=== PATIENT | female | born 1995 | race Caucasian/White ===

== ENCOUNTER 2019-09-12 22:23 | Emergency (ER) | payer BC, OTHER ==
[2019-09-12] MEDS ORDERED: Acetaminophen 325 MG Tab PO ONE (23:21)
[2019-09-12] MEDS ORDERED: Albuterol/Ipratropium 3.0-0.5 MG/3 ML Neb Soln NEB ONE (23:25)
[2019-09-12] MEDS ORDERED: Benzonatate 100 MG Cap PO ONE (23:38)
[2019-09-12] MEDS ORDERED: predniSONE 20 MG Tab PO ONE (23:38)
--- NOTE | 2019-09-12 23:40 | EDM.PDOC ---
ED HPI GENERAL MEDICAL PROBLEM - General Chief Complaint: General Stated Complaint: SICK, ASTHEMA, TOUGH TIME BREATHING Time Seen by Provider: 09/12/19 22:45 Source of Information: Reports: Patient History Limitations: Reports: No Limitations - History of Present Illness INITIAL COMMENTS - FREE TEXT/NARRATIVE: ED with c/o cough, asthma, fever chills, body aches since at early Thursday. no flu vaccine this year. hx asthma, uses only inhaler as needed. No ear pain, No nausea or vomiting. Throat scratchy. Headache Pain Score (Numeric/FACES): 6 - Related Data Allergies Allergy/AdvReac Type Severity Reaction Status Date / Time No Known Allergies Allergy Verified 09/12/19 22:42 Home Meds: Home Meds Albuterol Sulfate [Albuterol Sulfate Hfa] 8.5 gm IH Q4HR 09/12/19 [History] Past Medical History HEENT History: Reports: Impaired Vision Cardiovascular History: Reports: Other (See Below) Other Cardiovascular History: reports occasional heart palpitations Respiratory History: Reports: Asthma - Infectious Disease History Infectious Disease History: Reports: Chicken Pox, MRSA Social & Family History - Family History Family Medical History: Noncontributory - Tobacco Use Smoking Status *Q: Never Smoker Second Hand Smoke Exposure: No - Caffeine Use Caffeine Use: Reports: Coffee - Recreational Drug Use Recreational Drug Use: No ED ROS GENERAL - Review of Systems Review Of Systems: Comprehensive ROS is negative, except as noted in HPI. ED EXAM, GENERAL - Physical Exam Exam: See Below Exam Limited By: No Limitations General Appearance: Alert, Mild Distress Eye Exam: Bilateral Eye: EOMI Ears: Normal External Exam, Normal TMs Nose: Normal Inspection Throat/Mouth: Normal Inspection Head: Atraumatic, Normocephalic Neck: Normal Inspection Respiratory/Chest: No Respiratory Distress, Lungs Clear, Normal Breath Sounds. No: Crackles, Rales, Rhonchi, Wheezing Cardiovascular: Normal Peripheral Pulses, Regular Rate, Rhythm GI/Abdominal: Normal Bowel Sounds Back Exam: Normal Inspection Extremities: Normal Inspection Neurological: Alert, Oriented, Normal Cognition Psychiatric: Anxious Skin Exam: Warm, Dry, Intact, Normal Color Course - Vital Signs Last Recorded V/S: Last Vital Signs Temp 101.3 F H 09/12/19 22:35 Pulse 110 H 09/12/19 22:35 Resp 20 09/12/19 22:35 BP 152/83 H 09/12/19 22:35 Pulse Ox 95 09/12/19 22:35 - Orders/Labs/Meds Orders: Active Orders 24 hr Category Date Time Status RT Aerosol Therapy [RC] ASDIRECTED Care 09/12/19 23:25 Active CULTURE STREP A CONFIRMATION [] Stat Lab 09/12/19 22:50 Results STREP SCRN A RAPID W CULT CONF [] Stat Lab 09/12/19 22:50 Results Meds: Medications Discontinued Medications Generic Name Dose Route Start Last Admin Trade Name Pavithra PRN Reason Stop Dose Admin Acetaminophen 650 mg 09/12/19 23:21 09/12/19 23:28 Tylenol PO 09/12/19 23:22 650 mg NOW ONE Administration Albuterol/Ipratropium 3 ml 09/12/19 23:25 09/12/19 23:29 Duoneb 3.0-0.5 Mg/3 Ml NEB 09/12/19 23:26 3 ml ONETIME ONE Administration Benzonatate 200 mg 09/12/19 23:38 09/12/19 23:49 Tessalon Perles PO 09/12/19 23:39 200 mg ONETIME ONE Administration Benzonatate Confirm 09/12/19 23:52 Tessalon Perles Administered 09/12/19 23:53 Dose 100 mg .ROUTE .STK-MED ONE Prednisone 40 mg 09/12/19 23:38 09/12/19 23:49 Prednisone PO 09/12/19 23:39 40 mg ONETIME ONE Administration Departure - Departure Time of Disposition: 23:40 Disposition: Home, Self-Care 01 Condition: Good Clinical Impression: Influenza - Discharge Information *PRESCRIPTION DRUG MONITORING PROGRAM REVIEWED*: No *COPY OF PRESCRIPTION DRUG MONITORING REPORT IN PATIENT ALMAS: No Instructions: Influenza, Adult, [id number], Viral Respiratory Infection, Easy -To-Read Forms: ED Department Discharge Additional Instructions: humidifier alternate tylenol and ibuprofen for discomfort/fever increase fluids prednisone taper tessalon 200mg one every 8 hours as needed for cough follow up as needed albuterol inhaler 2 puffs every 4 hours as needed Sepsis Event Note - Evaluation Sepsis Screening Result: No Definite Risk - Focused Exam Vital Signs: Vital Signs Temp Pulse Resp BP Pulse Ox 09/12/19 22:35 101.3 F H 110 H 20 152/83 H 95 Date Exam was Performed: 09/13/19 Time Exam was Performed: 04:34 - My Orders Last 24 Hours: My Active Orders 09/12/19 22:50 CULTURE STREP A CONFIRMATION [RM] Stat STREP SCRN A RAPID W CULT CONF [RM] Stat 09/12/19 23:25 RT Aerosol Therapy [RC] ASDIRECTED - Assessment/Plan Last 24 Hours: My Active Orders 09/12/19 22:50 CULTURE STREP A CONFIRMATION [RM] Stat STREP SCRN A RAPID W CULT CONF [RM] Stat 09/12/19 23:25 RT Aerosol Therapy [RC] ASDIRECTED
[2019-09-12] MEDS ORDERED: Benzonatate 100 MG Cap ONE (23:52)
== END 2019-09-12 23:54 | disposition home or self-care (01) ==
LOC: DL.ED 22:23
DX: J11.1 Influenza due to unidentified influenza virus with other respiratory manifestations (principal); J45.909 Unspecified asthma, uncomplicated
CPT/HCPCS: 87081; 87430; 87804; 99284; A9270; J7620-GY